=== PATIENT | male | born 1970 | race African-American/Black ===

== ENCOUNTER 2019-06-08 15:13 | Emergency (ER) | payer SELFPAY ==
[2019-06-08] MEDS ORDERED: Ketorolac Tromethamine 30 MG/ML VIAL ONE (16:11)
== END 2019-06-08 17:56 | disposition home or self-care (01) ==
LOC: ERS 15:13
DX: K04.7 Periapical abscess without sinus (principal); K02.9 Dental caries, unspecified; I10 Essential (primary) hypertension
CPT/HCPCS: 96372; 99282; J1885